=== PATIENT | female | born 1985 | race Caucasian/White ===

== ENCOUNTER 2019-09-09 20:43 | Inpatient (IN) | payer OTHER ==
[~2019-09-09] VITALS: Ht 157.5 cm; Wt 85.7 kg
[2019-09-09 21:25] LABS: BASO % 0.3 % (0.0-1.0); EOS # 0.1 10^3/uL (0.0-0.5); HEMATOCRIT 39.5 % (36.0-47.0); HEMOGLOBIN 12.9 g/dl (12.0-15.5); LYMPH # 1.8 10^3/uL (1.5-5.0); LYMPH % 13.8 % (24.0-44.0); MEAN CORPUSCULAR HEMOGLOBIN 28.4 pg (27.0-33.0); MEAN CORPUSCULAR HGB CONC 32.7 g/dl (32.0-36.5); MONO # 0.7 10^3/uL (0.0-0.8); MONO % 5.1 % (0.0-5.0); NEUTROPHILS # 10.5 10^3/uL (1.5-8.5); NEUTROPHILS % 79.5 % (36.0-66.0); PLATELET COUNT, AUTOMATED 405 10^3/uL (150-450); RED BLOOD COUNT 4.54 10^6/uL (4.00-5.40); WHITE BLOOD COUNT 13.2 10^3/uL (4.0-10.0)
[2019-09-09] MEDS ORDERED: MORPHINE 4 MG/ML 1ML VIAL/SYRINGE (J2270) IV ONE ×2 (21:30→23:45)
[2019-09-09] MEDS ORDERED: NS 1,000 ML IV ONE ×2 (21:45→23:45)
[2019-09-09] MEDS ORDERED: ONDANSETRON 4MG/2ML VIAL IV ONE (21:45)
[2019-09-09 22:15] LABS: ALBUMIN 3.7 GM/DL (3.2-5.2); BILIRUBIN,TOTAL 0.8 MG/DL (0.2-1.0)
[2019-09-09] MEDS ORDERED: GI COCKTAIL 50ML BTL(HYOSCYAMINE/MAALOX/LIDOCAINE VISCOUS)(1:3:1) PO ONE (22:30)
[2019-09-09 22:43] LABS: BILIRUBIN,DIRECT 0.1 MG/DL (0.0-0.2)
--- NOTE | 2019-09-09 23:11 | REPVR ---
PROCEDURE INFORMATION: Exam: US Abdomen Limited, Right Upper Quadrant Exam date and time: 09/09/2019 10:50 PM Age: 33 years old Clinical indication: Abdominal pain; Epigastric; Additional info: Epigastric pain, 2 wks TECHNIQUE: Imaging protocol: Real-time ultrasound of the abdomen with image documentation. Examination was focused on the right upper quadrant. COMPARISON: No relevant prior studies available. FINDINGS: Liver: Normal. No masses. Gallbladder: Normal. No gallstones. There is no gallbladder wall thickening. Common bile duct: Normal 5.5 mm diameter biliary duct. Pancreas: Pancreas obscured by bowel gas. Right kidney: 10.4 cm right kidney with mild pelviectasis. IMPRESSION: 1. Cholelithiasis without sonographic evidence for acute cholecystitis. 2. 10.4 cm right kidney with mild pelviectasis. 3. Pancreas obscured by bowel gas. Electronically signed by: Robbie Noonan On 09/09/2019 23:11:08 PM
[2019-09-09] MEDS ORDERED: NS 1,000 ML IV SCH (23:45)
[2019-09-09] MEDS ORDERED: PRENTAB55 PO (23:50)
[2019-09-10] MEDS ORDERED: MAALOX 30 ML SUSP *UDC PO PRN (01:45)
[2019-09-10] MEDS ORDERED: MORPHINE 4 MG/ML 1ML VIAL/SYRINGE (J2270) IV PRN (01:45)
[2019-09-10] MEDS ORDERED: ONDANSETRON 4MG/2ML VIAL IV PRN (01:45)
[2019-09-10] MEDS ORDERED: ACETAMINOPHEN TAB 650MG DOSE (2X325MG) PO PRN (01:45)
--- NOTE | 2019-09-10 01:48 | HPEPDOC ---
General Date of Admission Date of Service: Sep 10, 2019 Chief Complaint The patient is a 33-year-old female admitted with a reason for visit of Abd Pain. Source: Patient Exam Limitations: No limitations Timing/Duration: Other (on day) Severity: Severe Associated Symptoms: Other (abdominal pain) History of Present Illness This is a 33 years old white female who recently had a done about 2 weeks ago at [facility], came in with chief complaints of epigastric pain which radiates towards her back, associated with some nausea not relieved with any pain medication, not exacerbated by any food persistent since last 1 day. Patient currently breast-feeding. She does not have any other medical complaints Home Medications Scheduled Haz738/Iron Fum/Folic/Docusate ( 19 Tablet) 1 Each Tablet, 1 TAB PO DAILY, (Reported) Allergies Coded Allergies: No Known Allergies (Unverified , 09/09/19) Past Medical History Medical History None Surgical History Appendectomy and Social History * Smoker: Denies Alcohol: Denies Drugs: denies A-FIB/CHADSVASC A-FIB History Current/History of A-Fib/PAF?: No Review of Systems Constitutional: Denies: Chills, Fever, Malaise, Night Sweats, Weakness, Fatigue, Weight Loss, Lethargy, Other Eyes: Denies: Pain, Vision change, Conjunctivae inflammation, Eyelid inflammation, Redness, Other ENT: Denies: Head Aches, Ear Pain, Dysphagia, Sinus Congestion, Post Nasal Drip, Sore Throat, Epistaxis, Other Symptoms Skin: Denies: Rash, Lesions, Jaundice, Bruising, Itching, Dry, Breakdown, Nail Changes, Other Pulmonary: Denies: Dyspnea, Cough, Pleuritic Chest Pain, Other Symptoms Cardiovascular: Denies: Chest Pain, Palpitations, Orthopnea, Paroxysmal Noc. Dyspnea, Edema, Lt Headedness, Other Symptoms Gastrointestinal: Reports: Nausea, Vomiting, Abdominal Pain Genitourinary: Denies: Dysuria, Frequency, Incontinence, Hematuria, Retention, Other Symptoms Hematologic: Denies: Bruising, Bleeding Excessively Endocrine: Denies: Polydipsia, Polyphagia, Polyuria, Heat Intolerance, Cold Intolerance, Other Endocrine Sx Musculoskeletal: Denies: Neck Pain, Back Pain, Shoulder Pain, Arm Pain, Hand Pain, Leg Pain, Foot Pain, Joint Pain, Muscle Pain, Spasms, Other Symptoms Neurological: Denies: Weakness, Numbness, Incoordination, Change in speech, Confusion, Seizures, Other Symptoms Psych: Denies: Mood Normal, Anxiety, Depression, Memory Issues, Thoughts of Self Harm, Anger, Thoughts of Harming Other, Other Psych Physical Examination General Exam: Positive: Alert, Cooperative Eye Exam: Positive: PERRLA, Conjunctiva & lids normal ENT Exam: Positive: Atraumatic, Mucous membr. moist/pink Neck Exam: Positive: Supple Chest Exam: Positive: Clear to auscultation, Normal air movement Heart Exam: Positive: Rate Normal, Normal S1, Normal S2 Abdomen Exam: Positive: Normal bowel sounds, Other (. Positive tenderness at the epigastric area, but abdomen is soft and bowel sounds are present) Extremity Exam: Positive: Normal pulses Skin Exam: Positive: Nl turgor and temperature Neuro Exam: Positive: Strength at 5/5 X4 ext, Sensation Intact, Cranial Nerves 3-12 NL Psych Exam: Positive: Mood NL, Oriented x 3 Vital Signs Vital Signs Date Time Temp Pulse Resp B/P (MAP) Pulse Ox O2 Delivery O2 Flow Rate FiO2 09/09/19 23:57 18 09/09/19 23:45 98.0 68 129/82 (98) 98 Room Air Laboratory Data Labs 24H Laboratory Tests 2 09/09/19 21:12: Immature Granulocyte % (Auto) 0.3, Neutrophils (%) (Auto) 79.5H, Lymphocytes (%) (Auto) 13.8L, Monocytes (%) (Auto) 5.1H, Eosinophils (%) (Auto) 1.0, Basophils (%) (Auto) 0.3, Neutrophils # (Auto) 10.5H, Lymphocytes # (Auto) 1.8, Monocytes # (Auto) 0.7, Eosinophils # (Auto) 0.1, Basophils # (Auto) 0.0, Nucleated Red Blood Cells % (auto) 0.0, Total Bilirubin 0.8, Direct Bilirubin 0.1, Aspartate Amino Transf (AST/SGOT) 184H, Alanine Aminotransferase (ALT/SGPT) 89H, Alkaline Phosphatase 236H, Total Protein 8.0, Albumin 3.7, Albumin/Globulin Ratio 0.9L, Lipase [id number], Human Chorionic Gonadotropin, Quant 2 09/09/19 21:15: POC Glucose (Misc Panel) 138H, POC Sodium (Misc Panel) 138, POC Potassium (Misc Panel) 6.7*H, POC Chloride (Misc Panel) 104, POC Total CO2 (Misc Panel) 28.0H, POC Blood Urea Nitrogen (Misc Panel 14, POC Ionized Calcium (Misc Panel) 4.2L, POC Creatinine (Misc Panel) 0.8, POC Hematocrit (Misc Panel) 42.0 09/09/19 23:14: Urine Color YELLOW, Urine Appearance CLEAR, Urine pH 5.0, Urine Specific [place] 1.008, Urine Protein NEGATIVE, Urine Glucose (UA) NEGATIVE, Urine Ketones NEGATIVE, Urine Blood 1+H, Urine Nitrite NEGATIVE, Urine Bilirubin NEGATIVE, Urine Urobilinogen 0.2, Urine Leukocyte Esterase NEGATIVE, Urine WBC (Auto) 1, Urine RBC (Auto) 1, Urine Hyaline Casts (Auto) 0, Urine Bacteria (Auto) 1+H, Urine Squamous Epithelial Cells 0, Urine Sperm (Auto) CBC/BMP Laboratory Tests 09/09/19 21:12 09/09/19 22:35 Problems (1) Acute pancreatitis Status: Acute Problem Text: This is a 33 years old white female who recently had the C- section and is 2 weeks ago from [facility] developed epigastric pain with radiation to expect with nausea, vomiting since Friday. Patient's temperature is 90.8, heart rate 68, blood pressure 129/82. WBC count of 13.2, hemoglobin 12.9, electrolytes are normal except potassium is 6.7, which most likely is hemolyzed specimen. I will repeat the potassium. Patient's BUN is 14, creatinine 0.8, AST 184, ALT 89, ALP 236, lipase of [id number]. Abdominal sonogram showed cholelithiasis but no acute cholecystitis and normal biliary ducts, pancreas were obscured Patient's acute pancreatitis, most likely secondary to gallstones, but needs further workup Admit to MedSurg floor for further workup IV fluids normal saline 100 mL per hour Morphine sulfate 4 mg IV every 4 hours when necessary Toradol 15 mg IV every 6 hours when necessary Protonix 40 mg IV every 24 hours Nothing by mouth except sips and chips Activity as tolerated DVT prophylaxis with bilateral SCDs from GI was called and he recommended MRCP Will order MRCP for tomorrow morning Further, as per GI recommendations Plan / VTE VTE Prophylaxis Ordered?: Yes BAILEE LATHAM MD Sep 10, 2019 01:48
[2019-09-10] MEDS: NS 1,000 ML IV SCH ×4 (02:12→19:27)
[2019-09-10] MEDS: KETOROLAC 30 MG/ML 1ML VIAL IV PRN ×4 (02:18→23:51)
[2019-09-10 06:00] VITALS: BP 116/66
[2019-09-10] MEDS: PRENATAL VITAMINS CHEWABLE TABLET PO SCH (09:00)
[2019-09-10 10:56] LABS: ALBUMIN 2.8 GM/DL (3.2-5.2); ALT/SGPT 67 U/L (12-78); BILIRUBIN,TOTAL 0.4 MG/DL (0.2-1.0); BLOOD UREA NITROGEN 9 MG/DL (7-18); CALCIUM LEVEL 7.9 MG/DL (8.5-10.1); CARBON DIOXIDE LEVEL 29 MEQ/L (21-32); CHLORIDE LEVEL 109 MEQ/L (98-107); CHOLESTEROL LEVEL 161 MG/DL (<200); CHOLESTEROL RISK RATIO 3.354 (<5); CREATININE FOR GFR 0.69 MG/DL (0.55-1.30); GLOMERULAR FILTRATION RATE > 60.0 (>60); GLUCOSE, FASTING 78 MG/DL (70-100); HDL CHOLESTEROL 48 MG/DL (>40); LDL CHOLESTEROL 96 MG/DL (<100); MAGNESIUM LEVEL 1.8 MG/DL (1.8-2.4); NON-HDL-C 113 MG/DL; POTASSIUM SERUM 3.7 MEQ/L (3.5-5.1); SODIUM LEVEL 144 MEQ/L (136-145); TOTAL PROTEIN 5.9 GM/DL (6.4-8.2); TRIGLYCERIDES LEVEL 86 MG/DL (<150)
[2019-09-10 14:00] VITALS: BP 109/71
--- NOTE | 2019-09-10 16:58 | REP ---
MRCP: MRCP exam is accomplished utilizing multiple heavily T2-weighted sequences in the axial and coronal planes with MIP reconstruction images. The gallbladder demonstrates multiple subcentimeter calculi in the dependent portion. There is no definite gallbladder wall thickening. There is no intrahepatic or extrahepatic biliary dilatation. Common bile duct is normal in caliber measuring 3 mm. There is no evidence for choledocholithiasis. There is diffuse ill-defined high signal on T2-weighted images in and around the pancreas with moderate degree of peripancreatic edema and mild scattered peripancreatic fluid extending into the right retroperitoneum. Findings are consistent with pancreatitis. Pancreatic duct is extremely small and not well visualized. There is a 9 mm cyst of the right kidney. I see no other significant finding. IMPRESSION: Cholelithiasis. No evidence of choledocholithiasis or biliary dilatation. Findings compatible with pancreatitis with moderate peripancreatic edema and mild scattered retroperitoneal fluid extending into the right lower quadrant. Pancreatic duct is not well visualized as it is extremely small in size. Electronically Signed by Jose Rodriguez MD 09/13/2019 10:06 P
--- NOTE | 2019-09-10 17:37 | IPNPDOC ---
Date Seen The patient was seen on 09/10/19. Progress Note SUBJECTIVE: Patient is a 33-year-old two-week female who presented to the [facility] emergency department yesterday with abdominal pain, found to have acute pancreatitis. Patient is a history of cholelithiasis. Gallbladder ultrasound yesterday did not demonstrate any obstructing stone. Laboratory studies demonstrated improvement in her LFTs. MRCP is ordered for today. This morning patient states that she still does have pain, however, it is improving. She denies any nausea or vomiting. She states that she is willing to try to advance her diet today. OBJECTIVE PHYSICAL EXAMINATION: VITAL SIGNS: Please see below. GENERAL: Awake, alert and oriented, appears no acute distress, sitting on edge of bed comfortably, pleasant and conversive HEENT:, Atraumatic normocephalic. Eyes nonicteric. Trachea is midline CARDIOVASCULAR: Normal S1, S2, regular rate and rhythm. No clicks, rubs or murmurs. RESPIRATORY: Clear Vesicular breath sounds bilaterally. Good respiratory effort. No wheezes, rhonchi or rales. ABDOMINAL: Soft, nondistended, mild tenderness in epigastric region. No rebound tenderness or guarding. Normoactive bowel sounds EXTREMITIES:. No edema. Full equal pulses bilateral upper and lower extremities NEUROLOGICAL: No focal Neurological deficits PSYCHOLOGICAL: Mood And affect appear appropriate LABORATORY DATA, IMAGING STUDIES, MICROBIOLOGY: Please see below. DVT prophylaxis ordered?: Teds and sequentials ASSESSMENT AND PLAN: Patient is a 33-year-old female with a history of cholelithiasis presented to the [facility] emergency department with acute onset abdominal pain. In the ER, she had elevated lipase and elevated transaminases. Gallbladder ultrasound demonstrating cholelithiasis. Patient was diagnosed with pancreatitis and admitted for management. PROBLEMS: 1. Acute pancreatitis -Patient presented with acute pancreatitis, likely of gallstone etiology. Gallbladder ultrasound obtained last night and a cholelithiasis without sonographic evidence of acute cholecystitis. MRCP was obtained today which demonstrated cholelithiasis but no evidence of choledocholithiasis or biliary dilatation. RCB did demonstrate pancreatitis with moderate peripancreatic edema and mild scattered retroperitoneal fluid extending to right lower quadrant. Her pancreatic duct was nondilated. -Will continue IV fluids at a rate of 200 mils per hour -Patient was presented nothing by mouth. Will advance diet to clear liquids as she feels as if she can tolerate this. -Continue with pain management -Patient's LFTs improved since admission, suggesting that there is less likely to be an obstructing stone. Patient likely has passed her stone. -Lipase on admission was [id number]. Will repeat lipase tomorrow just to ensure that it is decreasing. -Case was discussed with gastroenterology, who agrees with the current plan -Given patient's history of choledocholithiasis and now acute pancreatitis. She would likely benefit from outpatient cholecystectomy as she will likely have repeat pancreatitis in the future DISPOSITION: Patient's discharge is pending clinical improvement. Once patient can tolerate a diet and is transitioned off of IV medications, she will likely be discharged. Attending attestation: I evaluated and examined the patient in person; I discussed the care with Resident in detail and agree with the plan above. VS, I&O, 24H, Fishbone Vital Signs/I&O Vital Signs Date Time Temp Pulse Resp B/P (MAP) Pulse Ox O2 Delivery O2 Flow Rate FiO2 09/10/19 14:00 97.3 63 19 109/71 (84) 99 Room Air I&O- Last 24 Hours up to 6 AM 09/10/19 05:59 Intake Total 2000 ml Balance 2000 ml Laboratory Data 24H LABS Laboratory Tests 2 09/09/19 21:12: Immature Granulocyte % (Auto) 0.3, Neutrophils (%) (Auto) 79.5H, Lymphocytes (%) (Auto) 13.8L, Monocytes (%) (Auto) 5.1H, Eosinophils (%) (Auto) 1.0, Basophils (%) (Auto) 0.3, Neutrophils # (Auto) 10.5H, Lymphocytes # (Auto) 1.8, Monocytes # (Auto) 0.7, Eosinophils # (Auto) 0.1, Basophils # (Auto) 0.0, Nucleated Red Blood Cells % (auto) 0.0, Total Bilirubin 0.8, Direct Bilirubin 0.1, Aspartate Amino Transf (AST/SGOT) 184H, Alanine Aminotransferase (ALT/SGPT) 89H, Alkaline Phosphatase 236H, Total Protein 8.0, Albumin 3.7, Albumin/Globulin Ratio 0.9L, Lipase [id number], Human Chorionic Gonadotropin, Quant 2 09/09/19 21:15: POC Glucose (Misc Panel) 138H, POC Sodium (Misc Panel) 138, POC Potassium (Misc Panel) 6.7*H, POC Chloride (Misc Panel) 104, POC Total CO2 (Misc Panel) 28.0H, POC Blood Urea Nitrogen (Misc Panel 14, POC Ionized Calcium (Misc Panel) 4.2L, POC Creatinine (Misc Panel) 0.8, POC Hematocrit (Misc Panel) 42.0 09/09/19 23:14: Urine Color YELLOW, Urine Appearance CLEAR, Urine pH 5.0, Urine Specific [place] 1.008, Urine Protein NEGATIVE, Urine Glucose (UA) NEGATIVE, Urine Ketones NEGATIVE, Urine Blood 1+H, Urine Nitrite NEGATIVE, Urine Bilirubin NEGATIVE, Urine Urobilinogen 0.2, Urine Leukocyte Esterase NEGATIVE, Urine WBC (Auto) 1, Urine RBC (Auto) 1, Urine Hyaline Casts (Auto) 0, Urine Bacteria (Auto) 1+H, Urine Squamous Epithelial Cells 0, Urine Sperm (Auto) 09/10/19 09:47: Total Bilirubin 0.4, Aspartate Amino Transf (AST/SGOT) 55H, Alanine A minotransferase (ALT/SGPT) 67, Alkaline Phosphatase 174H, Total Protein 5.9#L, Albumin 2.8#L, Albumin/Globulin Ratio 0.9L, Anion Gap 6L, Glomerular Filtration Rate > 60.0, Calcium Level 7.9L, Magnesium Level 1.8, Triglycerides Level 86, Total Cholesterol 161, LDL Cholesterol 96, Non-HDL Cholesterol (LDL + VLDL) 113, Total HDL Cholesterol 48, Cholesterol/HDL Ratio 3.354 CBC/BMP Laboratory Tests 09/09/19 21:12 09/09/19 22:35 09/10/19 03:16 09/10/19 09:47 GREGORIO ECHOLS DO Sep 10, 2019 17:37 BENJAMIN NIELSEN MD Sep 13, 2019 08:17
[2019-09-10 22:00] VITALS: BP 119/74
[2019-09-11] MEDS: NS 1,000 ML IV SCH ×2 (00:13→05:11)
[2019-09-11 06:00] VITALS: BP 120/76
[2019-09-11 07:15] LABS: MEAN CORPUSCULAR HGB CONC 32.7 g/dl (32.0-36.5); MEAN CORPUSCULAR VOLUME 88.5 fl (80.0-96.0); PLATELET COUNT, AUTOMATED 293 10^3/uL (150-450); RED BLOOD COUNT 3.73 10^6/uL (4.00-5.40); WHITE BLOOD COUNT 8.4 10^3/uL (4.0-10.0)
[2019-09-11 07:31] LABS: HEMOGLOBIN 10.8 g/dl (12.0-15.5)
[2019-09-11 07:52] LABS: ALBUMIN 2.7 GM/DL (3.2-5.2); ALT/SGPT 42 U/L (12-78); BILIRUBIN,TOTAL 0.6 MG/DL (0.2-1.0); BLOOD UREA NITROGEN 6 MG/DL (7-18); CALCIUM LEVEL 7.8 MG/DL (8.5-10.1); CARBON DIOXIDE LEVEL 25 MEQ/L (21-32); CHLORIDE LEVEL 111 MEQ/L (98-107); CREATININE FOR GFR 0.54 MG/DL (0.55-1.30); GLOMERULAR FILTRATION RATE > 60.0 (>60); GLUCOSE, FASTING 75 MG/DL (70-100); LIPASE 892 U/L (73-393); MAGNESIUM LEVEL 1.8 MG/DL (1.8-2.4); POTASSIUM SERUM 3.8 MEQ/L (3.5-5.1); SODIUM LEVEL 143 MEQ/L (136-145); TOTAL PROTEIN 5.6 GM/DL (6.4-8.2)
[2019-09-11] MEDS ORDERED: ONDA-83 PO (08:56)
[2019-09-11] MEDS: PRENATAL VITAMINS CHEWABLE TABLET PO SCH (09:04)
[2019-09-11] MEDS: KETOROLAC 30 MG/ML 1ML VIAL IV PRN (09:05)
--- NOTE | 2019-09-11 14:53 | DS.PDOC ---
Discharge Summary General Date of Admission Sep 10, 2019 at 01:32 Date of Discharge 09/11/2019 Attending Physician: BENJAMIN NIELSEN MD Discharge Summary PROCEDURES PERFORMED DURING STAY: [None]. ADMITTING DIAGNOSES: 1. Acute pancreatitis DISCHARGE DIAGNOSES: 1. Gallstone pancreatitis COMPLICATIONS/CHIEF COMPLAINT: Acute Pancreatitis. HISTORY OF PRESENT ILLNESS: Patient is a 33-year-old two-week female who presented to the [facility] emergency department with complaint of sudden onset epigastric pain radiating to her back. Patient complained of some nausea and vomiting for the past day. On presentation, the ER she had a mild leukocytosis of 13.2, a transaminitis as well as elevated lipase of [id number]. Patient received a gallbladder ultrasound which demonstrated cholelithiasis without sonographic evidence of acute cholecystitis. The pancreas was obscured by bowel gas. Patient was subsequently admitted for the evaluation and management HOSPITAL COURSE: On admission, the patient was treated with IV fluid hydration as well as pain management and she was made nothing by mouth. An MRCP was obtained which demonstrated cholelithiasis but no evidence of choledocholithiasis or biliary dilatation. Her findings were compatible with pancreatitis with moderate peripancreatic edema and mild scattered retroperitoneal fluid extending into the right lower quadrant. The pancreatic duct was not well visualized as it was extremely small in size. Patient noticed significant improvement in her, pain in her diet was advanced to clear liquids. She tolerated this and later in the day her diet was advanced to a low-fat diet. Patient was tolerating her diet well and demonstrated clinical improvement. She was discharged home with recommendations to follow-up outpatient with general surgery for elective cholecystectomy given her cholelithiasis and new acute pancreatitis. DISCHARGE MEDICATIONS: Please see below. ALLERGIES: Please see below. PHYSICAL EXAMINATION ON DISCHARGE: VITAL SIGNS: Please see below. GENERAL: Awake, alert and oriented, appears in no acute distress, lying comfortably in bed HEENT:. Atraumatic, normocephalic. Eyes are nonicteric. Trachea is midline. Mucous membranes are pink and moist NECK:. No palpable cervical, axillary or supraclavicular lymphadenopathy CARDIOVASCULAR EXAMINATION:. Normal S1, S2, regular rate and rhythm. No clicks, rubs or murmurs RESPIRATORY EXAMINATION: Clear vesicular breath sounds bilaterally. Good respiratory effort. No wheezes, rhonchi or rales ABDOMINAL EXAMINATION: Soft, nondistended, mild epigastric tenderness improved from previous exam. No rebound tenderness or guarding. Normoactive bowel sounds EXTREMITIES:. No edema. Full and equal pulses in bilateral upper and lower extremities SKIN:. No rashes or lesions NEUROLOGICAL EXAMINATION:. No focal neurological deficits PSYCHIATRIC EXAMINATION:. Mood and affect appear appropriate for situation LABORATORY DATA: Please see below. IMAGING: PROCEDURE INFORMATION: Exam: US Abdomen Limited, Right Upper Quadrant Exam date and time: 09/09/2019 10:50 PM Clinical indication: Abdominal pain; Epigastric; Additional info: Epigastric pain, 2 wks TECHNIQUE: Imaging protocol: Real-time ultrasound of the abdomen with image documentation. Examination was focused on the right upper quadrant. COMPARISON: No relevant prior studies available. FINDINGS: Liver: Normal. No masses. Gallbladder: Couple gallstones. There is no gallbladder wall thickening. No pericholecystic fluid. Common bile duct: Normal 5.5 mm diameter common biliary duct. Pancreas: Pancreas obscured by bowel gas. Right kidney: 10.4 cm right kidney with mild pelviectasis. IMPRESSION: 1. Cholelithiasis without sonographic evidence for acute cholecystitis. 2. 10.4 cm right kidney with mild pelviectasis. 3. Pancreas obscured by bowel gas. Electronically signed by: Ru Roberts On 09/10/2019 00:04:46 AM DD: RU ROBERTS MD 09/09/19 2250 DT: AMRIT 09/10/19 0004 DS: BEATRIZ 09/10/19 0004 MRCP: MRCP exam is accomplished utilizing multiple heavily T2-weighted sequences in the axial and coronal planes with MIP reconstruction images. The gallbladder demonstrates multiple subcentimeter calculi in the dependent portion. There is no definite gallbladder wall thickening. There is no intrahepatic or extrahepatic biliary dilatation. Common bile duct is normal in caliber measuring 3 mm. There is no evidence for choledocholithiasis. There is diffuse ill-defined high signal on T2-weighted images in and around the pancreas with moderate degree of peripancreatic edema and mild scattered peripancreatic fluid extending into the right retroperitoneum. Findings are consistent with pancreatitis. Pancreatic duct is extremely small and not well visualized. There is a 9 mm cyst of the right kidney. I see no other significant finding. IMPRESSION: Cholelithiasis. No evidence of choledocholithiasis or biliary dilatation. Findings compatible with pancreatitis with moderate peripancreatic edema and mild scattered retroperitoneal fluid extending into the right lower quadrant. Pancreatic duct is not well visualized as it is extremely small in size. Unreviewed DD: Jose Rodriguez MD, MD 09/10/19 1351 DT: STEPHANY 09/10/19 [id number] DS: PROGNOSIS: Good ACTIVITY: [As tolerated]. DIET: Low fat DISCHARGE PLAN:. Patient is to be discharged home. She is to adhere to a low-fat diet. She is currently returning to [facility] where she is a resident. Patient was informed that she should follow-up with General Surgery for elective cholecystectomy given her cholelithiasis and new history of acute pancreatitis. Patient was informed to follow-up with her primary care physician 7-10 days. Patient is to take Zofran as needed for nausea, vomiting. DISPOSITION: 01 Home, Self-Care. DISCHARGE CONDITION: [Stable]. TIME SPENT ON DISCHARGE: Greater than 35 minutes. Attending attestation: I evaluated and examined the patient in person; I discussed the care with Resident in detail and agree with the plan above. Vital Signs/I&Os Vital Signs Date Time Temp Pulse Resp B/P (MAP) Pulse Ox O2 Delivery O2 Flow Rate FiO2 09/11/19 06:00 97.7 82 18 120/76 (91) 99 Room Air I&O- Last 24 Hours up to 6 AM 09/11/19 06:00 Intake Total 4850 ml Output Total 3100 ml Balance 1750 ml Laboratory Data Labs 24H Laboratory Tests 2 09/11/19 06:47: Nucleated Red Blood Cells % (auto) 0.0, Anion Gap 7L, Glomerular Filtration Rate > 60.0, Calcium Level 7.8L, Magnesium Level 1.8, Total Bilirubin 0.6, Aspartate Amino Transf (AST/SGOT) 28, Alanine Aminotransferase (ALT/SGPT) 42, Alkaline Phosphatase 148H, Total Protein 5.6L, Albumin 2.7L, Albumin/Globulin Ratio 0.9L, Lipase 892H CBC/BMP Laboratory Tests 09/11/19 06:47 Discharge Medications Scheduled Pyp414/Iron Fum/Folic/Docusate ( 19 Tablet) 1 Each Tablet, 1 TAB PO DAILY, (Reported) Scheduled PRN Ondansetron HCl (Ondansetron HCl) 4 Mg Tablet, 4 MG PO Q4HP PRN for nausea/vomiting Allergies Coded Allergies: No Known Allergies (Unverified , 09/09/19) GREGORIO ECHOLS DO Sep 11, 2019 14:53 BENJAMIN NIELSEN MD Sep 13, 2019 08:28
== END 2019-09-11 10:43 | disposition home or self-care (01) | DRG 444 ==
LOC: M ED 20:43 → M ED INP 09-10 01:32 → ENRESERV 09-10 02:11 → M MSPAV 09-10 02:45
PROVIDERS: ADMIT Internal Medicine; ATTEND Internal Medicine
DX: K80.00 Calculus of gallbladder with acute cholecystitis without obstruction (principal); K85.90 Acute pancreatitis without necrosis or infection, unspecified